=== PATIENT | female | born 1995 | race African-American/Black ===

== ENCOUNTER → 2018-06-22 | Outpatient (CLI) | payer OTHER ==
--- NOTE | 2018-06-22 15:23 | RADIOLOGY REPORT (SQ) ---
EXAM DESCRIPTION: HYSTEROSALPINGOGRAM; HYSTERO CATH/INJECTION COMPLETED DATE/TIME: 06/22/2018 1:23 pm REASON FOR STUDY: N97.9 FEMALE INFERTILITY, UNSPECIFIED N97.9 FEMALE INFERTILITY, UNSPECIFIED COMPARISON: None. PROCEDURE: PRE-PROCEDURE: Procedure was explained to the patient. She was told to expect cramping du ring the procedure, and possible spotting post procedure. PROCEDURE: Under direct visual inspection, the cervix was cannulated with the hysterosalpingogram ca theter and contrast injected. TECHNIQUE: Temporal fluoroscopic images acquired during the procedure stored to PACS. FLUOROSCOPY TIME: Less than 5 seconds 18 digital radiographic images saved to PACS. LIMITATIONS: None. FINDINGS: UTERUS: No identified anomalies. No synechia. RIGHT ADNEXA: Only partial filling of the right fallopian tube was achieved. There was preferential spillage of contrast out the left fallopian tube and into the pelvic peritoneal space. LEFT ADNEXA: Normal size fallopian tube. Free spill of contrast into the peritoneal cavity. POST PROCEDURE: The patient tolerated the procedure with no adverse effects. IMPRESSION: Normal endometrial canal and the left fallopian tube with free spillage into the perineu m. Only partial filling of the right fallopian tube was achieved, there was preferential spillage of con trast through the left fallopian tube into the pelvic peritoneal space. COMMENT: Quality ID 145: Final reports for procedures using fluoroscopy that document radiation exp osure indices, or exposure time and number of fluorographic images (if radiation exposure indices are not available) TECHNICAL DOCUMENTATION: JOB ID: [id number] [employer]- All Rights Reserved Reading location - IP/workstation name: [facility]
--- NOTE | 2018-06-22 15:23 | RADIOLOGY REPORT (SQ) ---
EXAM DESCRIPTION: HYSTEROSALPINGOGRAM; HYSTERO CATH/INJECTION COMPLETED DATE/TIME: 06/22/2018 1:23 pm REASON FOR STUDY: N97.9 FEMALE INFERTILITY, UNSPECIFIED N97.9 FEMALE INFERTILITY, UNSPECIFIED COMPARISON: None. PROCEDURE: PRE-PROCEDURE: Procedure was explained to the patient. She was told to expect cramping du ring the procedure, and possible spotting post procedure. PROCEDURE: Under direct visual inspection, the cervix was cannulated with the hysterosalpingogram ca theter and contrast injected. TECHNIQUE: Temporal fluoroscopic images acquired during the procedure stored to PACS. FLUOROSCOPY TIME: Less than 5 seconds 18 digital radiographic images saved to PACS. LIMITATIONS: None. FINDINGS: UTERUS: No identified anomalies. No synechia. RIGHT ADNEXA: Only partial filling of the right fallopian tube was achieved. There was preferential spillage of contrast out the left fallopian tube and into the pelvic peritoneal space. LEFT ADNEXA: Normal size fallopian tube. Free spill of contrast into the peritoneal cavity. POST PROCEDURE: The patient tolerated the procedure with no adverse effects. IMPRESSION: Normal endometrial canal and the left fallopian tube with free spillage into the perineu m. Only partial filling of the right fallopian tube was achieved, there was preferential spillage of con trast through the left fallopian tube into the pelvic peritoneal space. COMMENT: Quality ID 145: Final reports for procedures using fluoroscopy that document radiation exp osure indices, or exposure time and number of fluorographic images (if radiation exposure indices are not available) TECHNICAL DOCUMENTATION: JOB ID: [id number] [facility]- All Rights Reserved Reading location - IP/workstation name: [facility]
== END ==
LOC: RAD 12:52
PROVIDERS: ATTEND Student in an Organized Health Care Education/Training Program
DX: N97.9 Female infertility, unspecified (principal)
CPT/HCPCS: 58340; 74740